=== PATIENT | male | born 1985 | race Caucasian/White ===

== ENCOUNTER 2020-03-09 11:33 | Outpatient (REF) | payer MEDICAID, OTHER, SELFPAY | END 2020-03-09 11:34 | disposition home or self-care (01) | LOC: HO.LAB 11:33 | PROVIDERS: Visit Provider Internal Medicine | DX: Z20.828 Contact with and (suspected) exposure to other viral communicable diseases (principal) | CPT/HCPCS: C9803; U0003 ==

== ENCOUNTER → 2020-04-30 13:46 | Outpatient (BNV) | payer MEDICAID, SELFPAY | PROVIDERS: PCP Family Medicine; Visit Provider Internal Medicine Medical Oncology | DX: C62.91 Malignant neoplasm of right testis, unspecified whether descended or undescended (principal) | CPT/HCPCS: 99212; 99213; 99214 ==

== ENCOUNTER 2021-05-16 15:29 | Outpatient (REF) | payer MEDICAID, OTHER, SELFPAY ==
--- NOTE | ~2021-05-16 | XR_ITS ---
EXAMINATION: XR CHEST CLINICAL INFORMATION: Chest pain COMPARISON: CT chest 10/31/2019 TECHNIQUE: 2 views of the chest were obtained. FINDINGS: No significant abnormality is noted involving the heart, lungs, mediastinum, bony thorax or soft tissues. XR/XR chest 2V IMPRESSION: No acute cardiopulmonary process.
--- NOTE | ~2021-05-16 | XR_ITS ---
EXAMINATION: XR KNEE, LEFT CLINICAL INFORMATION: Pain COMPARISON: None TECHNIQUE: Two views of the left knee. FINDINGS: Bones and soft tissues are normal. No fracture or joint effusion. Alignment is anatomic. Joint spaces are well maintained. No abnormal soft tissue calcification. XR/XR knee LT 2V IMPRESSION: Normal left knee.
== END 2021-05-16 15:30 | disposition home or self-care (01) ==
LOC: HO.XRAY 15:29
PROVIDERS: Visit Provider Internal Medicine Medical Oncology
DX: R07.9 Chest pain, unspecified (principal); M25.562 Pain in left knee
CPT/HCPCS: 71046; 73560

== ENCOUNTER 2021-08-15 11:48 | Outpatient (REF) | payer MEDICAID, OTHER, SELFPAY ==
--- NOTE | ~2021-08-15 | CT_ITS ---
EXAMINATION: CT CHEST, ABDOMEN AND PELVIS WITH CONTRAST CLINICAL INFORMATION: Left lower chest pain. History of seminoma. COMPARISON: CT chest, abdomen and pelvis 10/31/2019. TECHNIQUE: 5 mm thin axial and reformatted 3 mm thin sagittal coronal images of chest, abdomen and pelvis were obtained following the administration of 100 mL of Omnipaque 350 intravenous contrast. DLP: 414 mGy-cm FINDINGS: CHEST: LUNGS: Both lungs are well expanded without any acute pneumonic process. There are no pulmonary nodules, mass or consolidation. There is a 2 mm calcified nodule likely granuloma right upper lobe medially, image 177/9 and right lower lobe subpleural-based axial image 351/9, stable. No noncalcified nodules seen. Mediastinum: The thyroid lobes are symmetric and normal. Central trachea and the bronchi are widely patent. Heart size and the great vessels are normal caliber. There are no abnormal-sized mediastinal lymph nodes or mass seen. No pericardial effusion. Pleura: There is no pleural thickening, effusion or calcification. Axilla: There are small shotty axillary lymph nodes. The chest wall appears unremarkable. Osseous Structures: No lytic or sclerotic process seen. ABDOMEN AND PELVIS: Liver, Ducts and Gallbladder: The liver is homogeneous in density, normal size and contour. There is a 4 mm punctate hypodensity in the left hepatic lobe, new since last exam. A second 6 mm hypodensity is visualized in left hepatic lobe adjacent to the anterior hepatic surface. Previously, it measured 2 mm. Statistically, these may represent tiny cysts. No additional lesion seen. No intrahepatic ductal dilatation. Spleen: Unremarkable. Pancreas: Unremarkable. Adrenal Glands: Unremarkable. Kidneys and Ureters: Both kidneys are normal size, shape and position. There are normal symmetrical nephrograms with normal cortical thickening. There is a 1 cm hypodensity with posterior calcified stone versus milk of calcium, stable. There is no hydronephrosis. Lymphovascular Structures: The abdominal aorta is of normal caliber. No abnormal sized retroperitoneal or pelvic lymph nodes seen. GI Tract: There is scattered stool, oral contrast seen throughout the colon without any significant distention. The small bowel loops are normal caliber. No free air or free fluid seen. Appendix is normal caliber. The abdominal wall appears unremarkable. Pelvis: The urinary bladder is nondistended and appears unremarkable. There is no free fluid. The prostate gland appears normal. Upward migrated left inguinal testicle, stable. Osseous Structures: No aggressive lytic or sclerotic process seen. CT/CT abdomen pelvis w con IMPRESSION: Punctate calcified granulomas in the lungs as described above are stable since 2019. No noncalcified lung nodules seen. No abnormal mediastinal or axillary lymphadenopathy. No abnormal retroperitoneal or pelvic lymphadenopathy. Stable right hypodensity with dependent calcium or stone.
[2021-08-15] MEDS: iohexoL 350 MG/ML 100 ML INFUS..BTL IV (15:01)
[2021-08-15] MEDS: Barium Sulfate Oral (Berry) 450 ML ORAL.SUSP 900 ML PO (15:01)
== END 2021-08-15 11:49 | disposition home or self-care (01) ==
LOC: HO.CT 11:48
PROVIDERS: Visit Provider Internal Medicine Medical Oncology
DX: R10.32 Left lower quadrant pain (principal); R07.9 Chest pain, unspecified; C62.90 Malignant neoplasm of unspecified testis, unspecified whether descended or undescended
CPT/HCPCS: 71260; 74177; Q9967

== ENCOUNTER 2022-03-31 11:11 | Outpatient (REF) | payer MEDICAID, OTHER, SELFPAY ==
--- NOTE | ~2022-03-31 | CT_ITS ---
EXAM: Contrast-enhanced CT scan of the chest, abdomen, and pelvis. INDICATION: History of seminoma COMPARISON: CT chest, abdomen and pelvis 08/07/2021 TECHNIQUE: Multidetector helical imaging of the chest, abdomen, and pelvis was obtained from the thoracic inlet through the pubic symphysis following administration of 85 cc of Omnipaque 350 IV contrast. Coronal and sagittal reformatted images that were obtained were also reviewed. DLP: 431 mGy-cm FINDINGS: CHEST: Central airways are patent. Lungs are well aerated. There is mild dependent atelectasis. No lobar consolidation. No pleural effusion or pneumothorax. No suspicious pulmonary nodules. A few tiny calcified granulomas are stable as is a 2 mm subpleural nodule of the lingula (image 368/542, series 7). The heart is normal in size. There is no pericardial effusion. No coronary artery calcifications appreciated. Normal caliber thoracic aorta. No gross mediastinal or hilar lymphadenopathy. A a few small calcified right hilar lymph nodes appear similar. No pathologically enlarged axillary lymph nodes. ABDOMEN/PELVIS: The liver is normal in size. A few sub-5 mm hypodense foci within the left hepatic lobe are too small to accurately characterize but stable. The gallbladder is normal in appearance. The pancreas, spleen and adrenal glands are unremarkable. Symmetrically enhancing kidneys without hydronephrosis. Similar partially calcified cyst of the right kidney with likely milk of calcium. Debris-filled stomach. Normal caliber loops of small and large bowel. Normal appendix. Normal caliber abdominal aorta. No retroperitoneal lymphadenopathy. The bladder is well-distended and normal in appearance. Prostate gland is normal in size. There is no gross free pelvic fluid. No inguinal lymphadenopathy. OSSEOUS STRUCTURES No acute osseous abnormalities. CT/CT abdomen pelvis w IV con IMPRESSION: No CT evidence for metastatic disease within the chest, abdomen or pelvis.
[2022-03-31] MEDS: Barium Sulfate Oral (Berry) 450 ML ORAL.SUSP 900 ML PO (13:57)
[2022-03-31] MEDS: iohexoL 350 MG/ML 100 ML INFUS..BTL IV (13:57)
== END 2022-03-31 11:12 | disposition home or self-care (01) ==
LOC: HO.CT 11:11
PROVIDERS: Visit Provider Internal Medicine Medical Oncology
DX: C62.90 Malignant neoplasm of unspecified testis, unspecified whether descended or undescended (principal); R10.32 Left lower quadrant pain
CPT/HCPCS: 71260; 74177; Q9967

== ENCOUNTER 2022-12-25 13:18 | Outpatient (REF) | payer MEDICAID, SELFPAY ==
--- NOTE | ~2022-12-25 | CT_ITS ---
EXAMINATION: CT CHEST, ABDOMEN AND PELVIS WITH CONTRAST CLINICAL INFORMATION: Follow-up seminoma; left lower quadrant pain. COMPARISON: Prior CT examinations, most recently 03/31/2022. TECHNIQUE: Multidetector volumetric imaging was performed from the thoracic inlet through the pubic symphysis following administration of 85 mL of Omnipaque 350 intravenous contrast. Sagittal and coronal reformatted images were obtained on the technologist workstation. Imaging is somewhat limited by motion artifact. This CT examination was performed using dose optimization techniques as appropriate, variously including the following: *Automated exposure control. *Adjustment of mA and/or kV according to patient size (this includes techniques or standardized protocols for targeted exams where dose is matched to indication/reason for exam, i.e., extremities or head). *Use of iterative reconstruction technique. DLP: 434 mGy-cm. FINDINGS: CHEST: LUNGS: The lungs are clear, with no evidence of inflammation or noncalcified nodules. A small benign, calcified subpleural granuloma is seen at the posterolateral right base (5:300). MEDIASTINUM: The mediastinum is normal. Central vascular structures are unremarkable. No hilar or mediastinal lymphadenopathy. PERICARDIUM/PLEURA: There is no significant effusion. No pleural mass or thickening. CHEST WALL/AXILLA: Unremarkable. ABDOMEN/PELVIS: LIVER, GALLBLADDER, BILIARY TREE: The liver is normal in size, shape, and attenuation. Within the left hepatic lobe (3:8 and 17), two 5 mm low-attenuation foci are seen, which are unchanged from prior CT examinations including 08/07/2021. These are too small to fully characterize with CT and may represent cysts or benign hemangiomas. The interim stability is reassuring. No new focal hepatic lesion is seen. No biliary ductal dilatation is present. The gallbladder is unremarkable with no evidence of radiopaque gallstones, gallbladder wall thickening, or pericholecystic inflammatory changes. PANCREAS: Unremarkable. SPLEEN: Unremarkable. ADRENAL GLANDS: Unremarkable. KIDNEYS AND URETERS: The kidneys are normal in size, shape, and attenuation. No hydronephrosis or hydroureter or calculi seen. A 1.2 cm posterior mid right renal benign cyst is redemonstrated, with milk of calcium (3:21). No perinephric stranding. BLADDER: Unremarkable. GASTROINTESTINAL TRACT: The small and large bowel are unremarkable. The appendix is unremarkable. ABDOMINAL WALL: No significant hernia is demonstrated. LYMPH NODES: Normal. VASCULAR: Unremarkable. PELVIC VISCERA: The prostate and seminal vesicles are unremarkable. OSSEOUS STRUCTURES: Unremarkable. CT/CT abdomen pelvis w IV con IMPRESSION: No thoracic or abdominopelvic metastasis is seen. There is no lymphadenopathy or free fluid. No aggressive osseous lesion is seen.
[2022-12-25] MEDS: iohexoL 350 MG/ML 100 ML INFUS..BTL IV (15:32)
[2022-12-25] MEDS: Barium Sulfate Oral (Mocha) 450 ML ORAL.SUSP 900 ML PO (15:33)
== END 2022-12-25 13:19 | disposition home or self-care (01) ==
LOC: HO.CT 13:18
PROVIDERS: PCP Family Medicine; Visit Provider Internal Medicine Medical Oncology
DX: C62.90 Malignant neoplasm of unspecified testis, unspecified whether descended or undescended (principal)
CPT/HCPCS: 71260; 74177; Q9967

== ENCOUNTER 2023-06-17 12:57 | Outpatient (REF) | payer MEDICAID, OTHER, SELFPAY | END 2023-06-17 12:58 | disposition home or self-care (01) | LOC: HO.SH 12:57 | PROVIDERS: Visit Provider Nurse Practitioner Community Health | DX: Z01.118 Encounter for examination of ears and hearing with other abnormal findings (principal); H90.3 Sensorineural hearing loss, bilateral; H93.11 Tinnitus, right ear | CPT/HCPCS: 92557; 92567; 92588 ==

== ENCOUNTER 2023-08-24 15:34 | Outpatient (AMB) | payer MEDICAID, SELFPAY ==
--- NOTE | 2023-08-24 15:52 | MHC.OFFVIS ---
Vital Signs 08/24/23 15:55 Height 5 ft 4 in Weight 154 lb BMI 26.4 BP 123/64 Blood Pressure Location Lt brachial Position Sitting Pulse 93 Intake Visit Reasons: Epigastric pain Intake Note: Patient new consult for Epigastric pain. Patient cc: Epigastric pain with acid reflex and burning sensation in the last weeks, but today everything is okay, he does not have any GI issues or problems. Family Court Registrar Required: Yes Family Court Registrar Name: [facility] interpeter Accompanied by: Self / Same As Patient Allergies No Known Allergies [No Known Allergies*] Allergy (Verified 08/24/23 15:52) Medication List - Last Reconciled 08/24/23 by Irene Phillips, [employer]ST ESTIMATING MANAGER-BC cetirizine 5 mg PO DAILY PRN famotidine 20 mg PO DAILY HPI HPI Epigastric pain: Details: 38-year-old male with past medical history of testicular cancer is here today for initial consultation. Patient was sent to us by his PCP and Dr. Fajardo. End of April patient was experiencing severe epigastric pain, bloating. 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 Patient was eating spicy food. PCP place patient on famotidine 20 mg daily. Patient was starting to feel better and stopped taking about 3 weeks ago. Since the time he stopped he has been feeling well. He also changed his jobs and no longer works at [employer] and no longer eat spicy food [facility] Medical History Testicular cancer Right knee pain Seizure disorder Toxoplasmosis Cysticercosis Semin[facility] Surgical History Hx of eye surgery Family History Paternal Grandfather Prostate cancer Social History Household Members: Spouse Housing: House Are you a primary medical care evaluation specialist to a significant other at home: No Do you presently have visiting nurse or other home services: No Patient Tobacco Use Status: Never used Tobacco service: No Current occupational status: employed Review of Systems Const Denies weight gain and Denies weight loss ENT Reports no additional complaints, Denies dysphagia and Denies odynophagia Card Reports no additional complaints Resp Reports no additional complaints GI Denies abdominal pain, Denies belching, Denies melena, Denies bloating, Denies change in bowel habits, Denies dysphagia, Denies excessive flatus, Denies dyspepsia, Reports heartburn (Occasional), Denies diarrhea, Denies loose stools, Denies nausea, Denies odynophagia and Denies vomiting Reports no additional complaints Musc Reports no additional complaints Neuro Reports no additional complaints Psych Reports no additional complaints Endo Reports no additional complaints Physical Exam Vital Signs: Last Vital Signs Pulse 93 08/24/23 15:55 BP 123/64 08/24/23 15:55 BMI result Body Mass Index 26.4 Const General: healthy appearing, no acute distress and well developed Nutritional Appearance: well nourished Orientation/consciousness: patient oriented x3 Resp Effort & Inspection: normal respiratory effort, able to speak in complete sentences, no tracheal deviation and symmetric chest movement Auscultation: clear to auscultation bilaterally Cardio Rate: regular rate GI Inspection: Yes normal to inspection and No distended Palpation (GI): Soft to palpation, not firm, nontender and No hepatosplenomegaly present Auscultation: normal bowel sounds General: Yes no CVA tenderness Back/Spine/Pelvis Back: no CVA tenderness Skin General skin exam: elasticity normal, turgor normal and dry skin Neuro General: patient oriented x3 Psych Appearance: grossly normal Mental Status: mental status grossly normal Assessment & Plan Assessment & Plan (1) GERD (gastroesophageal reflux disease): Code(s): K21.9 - Gastro-esophageal reflux disease without esophagitis Qualifiers: Esophagitis presence: esophagitis presence not specified Qualified Code(s): K21.9 - Gastro-esophageal reflux disease without esophagitis (2) Postprandial abdominal bloating: Code(s): R14.0 - Abdominal distension (gaseous) (3) Postprandial epigastric pain: Code(s): R10.13 - Epigastric pain Plan Patient will continue to avoid dietary triggers and late night snacking. Staying upright for minimum 3 hours after meals discussed with patient. Occasional symptoms of epigastric pain and postprandial abdominal bloating depending on what he eats. Will check for H pylori in the office today. Will treat empirically if positive. Will check for celiac and check lipase as well. He will follow-up in the office in 3 months, sooner on as needed basis. If patient will be treated for H pylori we will need to retest him for eradication. He is agreeable to this plan and verbalizes understanding of instructions. He was given the opportunity to ask questions and all questions answered. Thank you for allowing me to participate in his care Orders: Orders Transglutaminase Ab IgG 08/31/23 R10.9 - Unspecified abdominal pain Transglutaminase IgA 08/31/23 R10.9 - Unspecified abdominal pain Lipase 08/31/23 R10.9 - Unspecified abdominal pain H Pylori Breath Test 08/27/23 K21.9 - Gastro-esophageal reflux disease without esophagitis Coding Level of Care Code New Pt Level 3 (18512) Diagnoses Gastroesophageal reflux disease, unspecified whether esophagitis present K21.9 Esophagitis presence: esophagitis presence not specified Postprandial abdominal bloating R14.0 Postprandial epigastric pain R10.13 Time Spent (min) 40 Comment 30 minutes spent with patient and additional 10 minutes spent reviewing his records
[2023-08-24 15:55] VITALS: BP 123/64; PULSE 93; BMI 26.4
== END 2023-08-24 16:48 | disposition home or self-care (01) ==
PROVIDERS: PCP Nurse Practitioner Community Health; Visit Provider Nurse Practitioner Family
DX: K21.9 Gastro-esophageal reflux disease without esophagitis (principal); R14.0 Abdominal distension (gaseous); R10.13 Epigastric pain
CPT/HCPCS: 99203

== ENCOUNTER → 2023-08-24 15:34 | Outpatient (BNVA) | payer MEDICAID, SELFPAY | PROVIDERS: PCP Nurse Practitioner Community Health; Visit Provider Nurse Practitioner Family | DX: K21.9 Gastro-esophageal reflux disease without esophagitis (principal); R14.0 Abdominal distension (gaseous); R10.13 Epigastric pain | CPT/HCPCS: 99212 ==

== ENCOUNTER 2023-08-24 16:35 | Outpatient (REF) | payer MEDICAID, SELFPAY ==
[2023-08-28 08:47] LABS: H Pylori Breath Test Positive (Negative)
== END 2023-08-24 16:36 | disposition home or self-care (01) ==
LOC: HO.LNP 16:35
PROVIDERS: Visit Provider Nurse Practitioner Family
DX: K21.9 Gastro-esophageal reflux disease without esophagitis (principal)
CPT/HCPCS: 83013; 99212

== ENCOUNTER 2023-08-31 12:52 | Outpatient (REF) | payer MEDICAID, SELFPAY ==
[2023-08-31 14:17] LABS: Lipase 26 U/L (8-78)
[2023-09-03 08:04] LABS: Transglutaminase Ab IgG 1.5 U/mL; Transglutaminase IgA <1.0 U/mL
== END 2023-08-31 12:53 | disposition home or self-care (01) ==
LOC: HO.LAB 12:52
PROVIDERS: PCP Nurse Practitioner Community Health; Visit Provider Nurse Practitioner Family
DX: R10.9 Unspecified abdominal pain (principal)
CPT/HCPCS: 36415; 83690; 86364

== ENCOUNTER 2024-07-25 12:19 | Outpatient (REF) | payer OTHER, SELFPAY ==
--- NOTE | ~2024-07-25 | CT_ITS ---
CLINICAL HISTORY: [facility] CT chest with contrast Comparison: CT/UT/SR - CT CHEST W IV CON - 12/25/22 15:24 EDT Findings: The heart size is normal. The visualized thyroid and mediastinum are unremarkable. The lungs are clear. The visualized upper abdomen is unremarkable. No acute fractures. IMPRESSION: No evidence of metastatic disease in the chest. This document has been electronically signed by: Sindy Sims MD on 07/26/2024 16:58:36
--- NOTE | ~2024-07-25 | CT_ITS ---
CLINICAL HISTORY: [facility] CT abdomen and pelvis with contrast Comparison: CT/[place]/SR - CT ABDOMEN PELVIS W IV CON - 12/25/22 15:24 EDT Findings: The lung bases are clear. Hepatic steatosis. Stable small hypodensities of the liver. The gallbladder and additional solid organs are within normal limits. Stable cyst of the right kidney with calcification. No bowel obstruction, pneumoperitoneum, or pneumatosis. No lymphadenopathy. Pelvic contents unremarkable. Normal appendix. No acute fracture. IMPRESSION: Stable examination. No evidence of new metastatic disease in the abdomen and pelvis. This document has been electronically signed by: Sindy Sims MD on 07/26/2024 16:56:31
--- OUTSIDE RECORDS SUMMARY | 2024-07-25 14:40 | XMS_ITS | Clinical Summary ---
Author Organization [employer] Address [address] [place] [address] Care Team Providers Care Mental Health Program Specialist Name Role Phone All Espinoza NP Primary Care Provider Riya Baptiste Unavailable Unavailable Allergies Active Allergy Reactions Criticality Noted Date Comments Pollen Extract Other 07/21/2022 Runny nose itchy eyes Medications * This document contains information received from the source organization and may not represent a complete record from that organization. Bioflavonoid Products (Vitamin C) chewable tablet Chew 1 tablet if needed each day (allergies, URI). Active cetirizine (ZyrTEC) 10 MG tabletIndication s:Seasonal allergic rhinitis, unspecified trigger TAKE 1 TABLET (10 MG) BY MOUTH DAILY NEEDED FOR ALLERGIES 90 tablet 1 3 Active Additional Information Patient not taking.Reported on 02/22/2024 Active Problems Problem Noted Date Diagnosed Date Acute stress reaction with p redominately emotional disturbance 11/06/2022 Tinnitus of right ear 07/21/2022 Seasonal allergic rhinitis 07/21/2022 Low vision of right eye with normal vision in contralateral eye 06/17/2022 Anxiety 06/17/2022 Learning disability 06/17/2022 History of testicular cancer 06/17/2022 Renal cyst, right 09/03/2018 Overview (06/25/2022): Last Assessment & Plan: -CT showed right sided renal cyst with recommendation for follow-up ultrasound -Ultrasound appears to be a Bosniak 2F cyst so will need follow-up Neutropenia 09/03/2018 Overview (06/25/2022): Last Assessment & Plan: -slowly trending up ANC up to 1690 Resolved Problems Problem Noted Date Diagnosed Date Resolved Date Seizure 07/16/2022 07/18/2022 Overview (07/16/2022): h/o seizures at age 7, treated for cysticercosis & toxoplasmosis, followed by neuro for 10-12 years, seizure-free entire adult life[facility] of [facility] embolism 06/17/2022 06/25/2022 History of seizures as a child 06/17/2022 07/18/2022 Pulmonary embolism, bilateral 09/04/2018 07/18/2022 Overview (06/25/2022): Last Assessment & Plan: - acute bilateral pulmonary embolism - echo reassuring, did not show RV strain 0cont anticoagulation with lovenox, given the malignancy would discharge on lovenox as long as has coverage for it - cannot find out co-pay until Thursday Pneumonia of right lower lob e due to infectious organism 09/03/2018 07/18/2022 Overview (06/25/2022): Last Assessment & Plan: - de-escalated abx to levaquin - there is concern for concurrent pneumonia in addition to PEs Testicular cancer 09/03/2018 07/18/2022 Overview (06/25/2022): Last Assessment & Plan: - oncologist is Dr. Fajardo - receiving chemotherapy BEP (on 08/30 he was day 15 of cycle 2) - Plan is to contact Dr. Fajardo on Thursday to discuss updates as he is due to have chemo - possibly can discharge with lovenox and follow up with Dr. Fajardo ([place] [facility]) Encounters Date Type Department Care Team Description 06/27/2024 10:00 AM EDT Office Visit [place] [facility] [address] [place] [address] Anna Marie Diane LLD 06/27/2024 8:30 AM EDT Office Visit [place] [facility] [address] [place] [address] Josseline Bernard Encounter for dental examination (Primary Dx); Stage 2 grade B generalized periodontitis per AAP/EFP 2017 classification from Last 3 Months Immunizations Name Administration Dates Next Due Hep B, adult 11/27/2021,09/03/2021,08/02/2021 INFLUENZA INJECTABLE QUADRIV ALANT CCIIV4 MDCK Multi-dose vial 02/26/2023 Influenza injectable quadriv alent preservative free 03/07/2019 Influenza, Injectable, MDCK, preservative free 02/22/2024 MMR 08/02/2021 Moderna Covid-19 Vaccine 12+ 02/22/2024 Tdap 06/27/2021 Varicella 09/03/2021,08/02/2021 Family History Medical History Relation Name Comments Cataracts Father Cataracts Paternal Grandfather Relation Name Status Comments Father Paternal Grandfather Social History Tobacco Use Types Packs/Day Years Used Date Smoking Tobacco: Former Cigarettes Smokeless Tobacco: Never Tobacco Cessation:Counseling Given: Not Answered Comments:Smokes thc when needed for medical reasons Alcohol Use Standard Drinks/Week Comments Not Currently 0 (1 standard drink = 0.6 oz pur e alcohol) Depression Answer Date Recorded Patient Health Questionnaire-9 Score 14 11/23/2022 Housing Stability Answer Date Recorded What is your housing situation today? I have evelia sheree 02/16/[address] you li ve. Do you have problems with any of the following? None of the above 02/16/2023 Food Insecurity Answer Date Recorded Within the past 12 months, y ou worried that your food would run out before you got money to buy more: Sometimes True 2022 Within the past 12 months,th e food you bought just didn't last and you didn't have enough money to get more: Sometimes True 02/16/2023 Transportation Answer Date Recorded In the past 12 months, has l ack of transportation kept you from medical appts, meetings, work or from getting things needed for daily living? Yes, it has kept me from medical appointments or getting medications.;No 01/24/2023 Utilities Answer Date Recorded In the past 12 months, has t he electric, gas, oil or water company threatened to shut off services in your home? Yes 01/24/2023 Depression Answer Date Recorded Patient Health Questionnaire-2 Score 3 11/23/2022 Sex and Gender Information Value Date Recorded Sex Assigned at Male 02/19/2022 4:58 PM EDT Legal Sex Male 8:39 PM EDT Gender Identity Male 06/14/2022 8:47 AM EST Sexual Orientation Straight 06/14/2022 8: 47 AM EST Last Filed Vital Signs Vital Sign Reading Time Taken Comments Blood Pressure 114/69 02/22/2024 11:56 AM EST Pulse 81 02/22/2024 11:56 AM EST Temperature 36.9 ??C (98.4 ??F) 02/22/2024 11:[address] Respiratory Rate 16 02/22/2024 11:56 AM EST Oxygen Saturation 97% 09/21/2023 12:23 PM EDT Inhaled Oxygen Concentration - - Weight 76.9 kg (169 lb 9.6 oz) 02/22/2024 11:56 AM EST Height 165.1 cm (5' 5 ) 02/22/2024 11:56 AM EST Body Mass Index 28.22 02/22/2024 11:56 AM EST Plan of Treatment Upcoming Encounters Date Type Department Care Team (Late st Contact Info) Description 02/27/2025 12:00 PM EST Office Visit [place] [facility] [address] [place] [address] All Espinoza NP [address] [place] [address] Health Maintenance Due Date Last Done Comments Alcohol/Substance Use Screening 1995 Family Planning (PISQ) 1998 Hepatitis C Screening 2001 Depression Monitoring (PHQ-9) 05/26/2023, 11/23/2022 SDOH Screening 06/27/2023 06/26/2022 Depression Screening 11/24/2023 11/23/2022, 11/23/2022 Dental Oral Exam 12/29/2024 06/27/2024 Dental Prophylaxis 12/29/2024 06/27/2024 Tobacco Screening 06/27/2025 06/27/2024 Dental X-Ray: Bitewings 06/28/2025 06/27/2024 Lipid Panel 07/18/2026 07/18/2021 Dental X-Ray: Full Mouth 06/29/2027 06/27/2024 DTaP/Tdap/Td Vaccines (2 - T d or Tdap) 06/28/2031 06/27/2021 Zoster Vaccines (1 of 2) 2033 RSV Patients and Patients Aged 60 years or older (1 - 1-dose 75+ series) 2058 HIV Screening Completed 07/18/2021 Hepatitis B Vaccines Completed 11/27/2021, 09/03/2021, 08/02/2021 COVID-19 Vaccine Completed 02/22/2024, 12/20/2020, 11/29/2020 Influenza Vaccine Completed 02/22/2024, 02/26/2023, 03/07/2019 HIB Vaccines Aged Out No longer eligi ble based on patient's age to complete this topic HPV Vaccines Aged Out No longer eligi ble based on patient's age to complete this topic Hepatitis A Vaccines Aged Out No long er eligible based on patient's age to complete this topic IPV Vaccines Aged Out No longer eligi ble based on patient's age to complete this topic Meningococcal Vaccine Aged Out No lyudmila nena eligible based on patient's age to complete this topic Pneumococcal Vaccine: Pediatrics (0 to 5 Years) and At-Risk Patients (6 to 49) Years) Aged Out No longer eligible b ased on patient's age to complete this topic RSV under 20 months Aged Out No longe r eligible based on patient's age to complete this topic Rotavirus Vaccines Aged Out No longer eligible based on patient's age to complete this topic Procedures Procedure Name Priority Date/Time Associated Diagnosis Comments CASE PRESENTATION, DETAILED AND EXTENSIVE TREATMENT PLANNING Routine 06/27/2024 10:00 AM EDT 12 B(V) RESIN-BASED COMPOSITE - 1 SURF, POSTERIOR Routine 06/27/2024 10:00 AM EDT 27 I RESIN-BASED COMPOSITE - 1 SURF, ANTERIOR Routine 06/27/2024 10:00 AM EDT 20 B(V) RESIN-BASED COMPOSITE - 1 SURF, POSTERIOR Routine 06/27/2024 10:00 AM EDT 5 B(V) RESIN-BASED COMPOSITE - 1 SURF, POSTERIOR Routine 06/27/2024 10:00 AM EDT 21 B(V) RESIN-BASED COMPOSITE - 1 SURF, POSTERIOR Routine 06/27/2024 10:00 AM EDT CASE PRESENTATION, DETAILED AND EXTENSIVE TREATMENT PLANNING Routine 06/27/2024 8:30 AM EDT ORAL HYGIENE INSTRUCTIONS Routine 06/27/2024 8:30 AM EDT INTRAORAL - COMPLETE SERIES OF RADIOGRAPHIC IMAGES Routine 06/27/2024 8:30 AM EDT PROPHYLAXIS - ADULT Routine 06/27/2024 8 :30 AM EDT COMPREHENSIVE ORAL EVALUATION - NEW OR ESTABLISHED PATIENT Routine 06/27/2024 8:30 AM EDT 4,11,10 PARTIAL DENTURE - RESIN Routine 06/27/2024 12:00 AM EDT 18 O COMPOSITE FILLING Routine 12:00 AM EDT 14 O COMPOSITE FILLING Routine 12:00 AM EDT 30 O COMPOSITE FILLING Routine 12:00 AM EDT 5 O COMPOSITE FILLING Routine 06/27/2024 12:00 AM EDT 2 O COMPOSITE FILLING Routine 06/27/2024 12:00 AM EDT 3 O COMPOSITE FILLING Routine 06/27/2024 12:00 AM EDT HIV 1/2 ANTIGEN/ANTIBODY, FOURTH GENERATION W/RFL Routine 07/18/2021 3:14 PM EDT ZZZ HISTORICAL LIPID PANEL Routine 07/18/2021 3:14 PM EDT from Last 3 Months or Most Recently Relevant to Health Maintenance Results * (ABNORMAL) LIPID PANEL (07/18/2021 3:14 PM EDT) CHOLESTEROL 198 0 - 240 mg/dL [facility] CARDIAC RISK RATIO 4.3 3.4 - 5.0 [facility] HDL 46 mg/dL [facility] Comment: Interpretation <40 mg/dL: Low HDL cholesterol (major risk factor for CHD) Greater than or equal to 60 mg/dL: High HDL cholesterol (negative risk factor for CHD) HDL - cholesterol is affected by a number of factors, e.g. smoking, excerise, hormones, sex and age. LDL 117 50 - 129 mg/dL [facility] Comment: LDL levels in terms of risk for coronary heart disease: <100 mg/dL: Optimal 100-129 mg/dL: Near or above optimal 130-159 mg/dL: Borderline high 160-189 mg/dL: High >190 mg/dL: Very High TRIGLYCERIDES 175(H) 30 - 160 mg/dL [facility] 07/18/2021 3:14 PM EDT All Espinoza NP HISTORICAL/NON ORDERABLE LAB S Final Result Performing Organization Address [facility] Co de Phone Number [facility] [address] * HIV-1/2 antigen/antibody (07/18/2021 3:14 PM EDT) HIV-1/2 ANTIGEN/ANTIBO DY NON-REACTI VE NON-REACTI VE [facility] 07/18/2021 3:14 PM EDT All Espinoza NP LAB BLOOD ORDERABLES Final R esult Performing Organization Address [facility] Co de Phone Number [facility] [address] from Last 3 Months or Most Recently Relevant to Health Maintenance Insurance [employer] HSN FULL DENTAL - HSN FULL (MEDICAID) DENTAL - HSN PARTIAL (MEDICAID) Care Teams Mental Health Program Specialist Relationship Specialty Start Date End Date All Espinoza NP [address] [place] [address] PCP - General Internal Medicine 06/25/22 Riya Baptiste LICSW [address] [place] [address] [facility] 11/06/22
--- OUTSIDE RECORDS SUMMARY | 2024-07-25 14:40 | XMS_ITS | Encounter Summary ---
Author Organization [employer] Address [address] [place] [address] Care Team Providers Care Process Design Engineer Name Role Phone All Espinoza NP Primary Care Provider Riya Baptiste Unavailable Unavailable Encounter Details Date Type Department Care Team ([facility] Contact Info) Description 05/22/2023 Orders Only [facility] [address] [place] [address] All Espinoza NP [address] [place] [address] Social History Tobacco Use Types Packs/Day Years Used Date Smoking Tobacco: Former Cigarettes Q uit: 2013 Smokeless Tobacco: Never Comments:Smokes thc when nee ded for medical reasons Alcohol Use Standard Drinks/Week Comments Yes 0 (1 standard drink = 0.6 oz pur e alcohol) Depression Answer Date Recorded Patient Health Questionnaire-9 Score 14 11/23/2022 Housing Stability Answer Date Recorded What is your housing situation today? I have eveliasol bentley 02/16/[address] you li [...] Orientation Straight 06/14/2022 8: 47 AM EST documented as of this encounter Plan of Treatment Upcoming Encounters Date Type Department Care Team (Late st Contact Info) Description 02/27/2025 12:00 PM EST Office Visit [place] [facility] [address] [place] [address] All Espinoza NP [address] [place] [address] documented as of this encounter Procedures Procedure Name Priority Date/Time Associated Diagnosis Comments CT ABDOMEN PELVIS W CONTRAST Routine 12/25/2022 CT CHEST W CONTRAST Routine 12/25/2022 documented in this encounter Results * CT Chest w/ Contrast (12/25/2022) Anatomical Region Laterality Modality Body, Chest Computed Tomogra phy All Espinoza PHOSPHORIC ACID SUPERVISOR IMG CT PROCEDURES Edited Res ult - Final * CT Abdomen Pelvis w/ Contrast (12/25/2022) Anatomical Region Laterality Modality Body, Pelvis, Abdomen Computed T omography All Espinoza PHOSPHORIC ACID SUPERVISOR IMMau CT PROCEDURES Edited Res ult - Final documented in this encounter Visit Diagnoses Not on filedocumented in this encounter Additional Health Concerns Assessment Noted Time PHQ-9 Depression Total Score: 14 023 10:09 AM EDT documented as of this encounter Care Teams Process Design Engineer Relationship Specialty Start Date End Date All Espinoza NP [address] [place] [address] PCP - General Internal Medicine 06/25/22 Riya Baptiste LICSW [address] [place] [address] [facility] 11/06/22 documented as of this encounter
[2024-07-25] MEDS: iohexoL 350 MG/ML 75 ML INFUS..BTL 85 ML IV (15:51)
[2024-07-25] MEDS: Barium Sulfate Oral (Vanilla) 450 ML ORAL.SUSP 900 ML PO (15:53)
== END 2024-07-25 12:20 | disposition home or self-care (01) ==
LOC: HO.CT 12:19
PROVIDERS: PCP Nurse Practitioner Community Health; Visit Provider Internal Medicine Medical Oncology
DX: C62.90 Malignant neoplasm of unspecified testis, unspecified whether descended or undescended (principal)
CPT/HCPCS: 71260; 74177; Q9967

== ENCOUNTER → 2024-07-25 12:24 | Outpatient (BNV) | payer OTHER, SELFPAY | PROVIDERS: PCP Nurse Practitioner Community Health; Visit Provider Nuclear Medicine | DX: C62.90 Malignant neoplasm of unspecified testis, unspecified whether descended or undescended (principal) | CPT/HCPCS: 71260; 74177 ==